=== PATIENT | male | born 1990 ===

== ENCOUNTER 2018-11-08 13:33 | Emergency (ER) | payer OTHER ==
[2018-11-08] MEDS ORDERED: Tdap Vaccine 0.5 ml Vial (10-64 yrs) IM ONE ×2 (13:46→14:26)
[2018-11-08] MEDS ORDERED: Absorbable Gelatin Sponge Size 100 MM ONE (13:46)
--- NOTE | 2018-11-08 13:47 | C.PDOC ---
History Of Present Illness 28 year old presents to the ED for evaluation of cut to the right thumb sustained yesterday at work. 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 Denies any weakness, numbness, or tingling. Right hand dominant. Time Seen by Provider: 11/08/18 13:35 Chief Complaint (Nursing): Abnormal Skin Integrity History Per: Patient, Industrial Relations Manager (Ace chan) History/Exam Limitations: no limitations Onset/Duration Of Symptoms: Days (1) Current Symptoms Are (Timing): Still Present Location Of Injury: Right: Hand (cut to the right thumb ) Quality Of Symptoms: Painful Past Medical History Reviewed: Historical Data, Nursing Documentation, Vital Signs Vital Signs: Last Vital Signs Temp 98.2 F 11/08/18 13:41 Pulse 68 11/08/18 13:41 Resp 16 11/08/18 13:41 BP 111/76 11/08/18 13:41 Pulse Ox 99 11/08/18 13:41 - Medical History PMH: No Chronic Diseases Surgical History: No Surg Hx Family History: States: No Known Family Hx - Social History Hx Alcohol Use: No Hx Substance Use: No - Immunization History Hx Tetanus Toxoid Vaccination: No Hx Influenza Vaccination: No Hx Pneumococcal Vaccination: No Review Of Systems Except As Marked, All Systems Reviewed And Found Negative. Skin: Positive for: Other (cut to the right thumb ) Neurological: Negative for: Weakness, Numbness Physical Exam - Physical Exam Appears: Non-toxic, No Acute Distress Skin: Warm, Dry, No Rash, Other (1cm avulsion to dorsal aspect of right thumb with oozing ) Head: Normacephalic Eye(s): bilateral: Normal Inspection, EOMI Nose: Normal Oral Mucosa: Moist Neck: Normal ROM, Supple Chest: Symmetrical Cardiovascular: Rhythm Regular Respiratory: No Accessory Muscle Use, No Other (Speaking full sentences) Extremity: Normal ROM, Capillary Refill (less than 2 sec to right hand ), No Deformity, No Swelling Pulses: Left Radial: Normal, Right Radial: Normal Neurological/Psych: Oriented x3, Normal Speech, Normal Motor, Normal Sensation Gait: Steady ED Course And Treatment O2 Sat by Pulse Oximetry: 99 (RA) Pulse Ox Interpretation: Normal Progress Note: Wound cleaned with sterile saline. Patient given Tetanus vaccination. Gelatin sponge applied and finger wrapped with gauze. WOund was rechecked in 20 minutes. Wound was unwrapped and bleeding resolved. Wound was re-wrapped and discharge signs of concern. Instructed to ensure blood flow to distal aspect of finger, to allow finger to heal and to no remove the foam. Advised to return in 2 days for wound check. Disposition - Disposition Disposition: HOME/ ROUTINE Disposition Time: 15:00 Condition: STABLE Additional Instructions: Do not remove the gel foam. Return in two day for wound check or sooner if s ymptoms persist or worsen. No extraiga la espuma de gel. Regrese en dos lang para comprobar la herida o antes si los sntomas persisten o empeoran. 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 - Scribe Statement The provider has reviewed the documentation as recorded by the Scribcelio Lau All medical record entries made by the Scribe were at my direction and personally dictated by me. I have reviewed the chart and agree that the record accurately reflects my personal performance of the history, physical exam, medical decision making, and the department course for this patient. I have also personally directed, reviewed, and agree with the discharge instructions and disposition.
[2018-11-08 13:55] VITALS: BP 111/76; PULSE 68; RESP 16; TEMP 98.2; O2SAT 99
[2018-11-08] MEDS ORDERED: Oxycodone/Acetaminophen 5/325 mg Tab ONE (14:26)
== END 2018-11-08 15:14 | disposition home or self-care (01) ==
LOC: C.ER 13:33
DX: S61.001A Unspecified open wound of right thumb without damage to nail, initial encounter (principal); W45.8XXA Other foreign body or object entering through skin, initial encounter; Y93.G1 Activity, food preparation and clean up; Y92.89 Other specified places as the place of occurrence of the external cause; Y99.0 Civilian activity done for income or pay